=== PATIENT | male | born 1990 | race Caucasian/White ===

== ENCOUNTER 2016-05-23 15:41 | Emergency (ER) | payer SELFPAY ==
[2016-05-23] MEDS ORDERED: NS 1,000 ML IV ONE (16:41)
[2016-05-23 16:49] LABS: % IMMATURE GRANULYOCYTES 0.3 % (0.0-1.1); ABSOLUTE IMMATURE GRANULOCYTES 0.03 10^3/uL (0.00-0.10); ADD DIFF? NO; ADD MORPH? NO; ADD SCAN? NO; ATYPICAL LYMPHOCYTE FLAG 20 (0-99); FRAGMENT RBC FLAG 0 (0-99); HEMATOCRIT 49.6 % (40.0-51.0); HEMOGLOBIN 18.2 g/dL (13.7-17.5); LEFT SHIFT FLG 0 (0-99); LIPEMIA HEMOLYSIS FLAG 90 (0-99); MEAN CELL HEMOGLOBIN 32.3 pg (27.9-34.1); MEAN CELL HEMOGLOBIN CONCENTR. 36.7 g/dL (32.4-36.7); MEAN CELL VOLUME 88.1 fL (81.5-99.8); PLATELET CLUMPS FLAG 0 (0-99); PLATELET COUNT 255 10^3/uL (150-400); RED BLOOD CELL COUNT 5.63 10^6/uL (4.40-6.38); RED CELL DISTRIBUTION WIDTH 12.6 % (11.5-15.2)
[2016-05-23] MEDS ORDERED: IOPAMIDOL (ISOVUE-300) 100 ML BTL IV ONE (16:54)
[2016-05-23 16:58] LABS: ALANINE AMINOTRANSFERASE 31 IU/L (21-72); ALKALINE PHOSPHATASE 92 IU/L (38-126); ANION GAP 16 mEq/L (8-16); ASPARTATE AMINOTRANSFERASE 24 IU/L (17-59); BILIRUBIN,TOTAL 0.9 mg/dL (0.1-1.4); BILIRUBIN-CONJUGATED 0.3 mg/dL (0.0-0.5); BILIRUBIN-UNCONJUGATED 0.6 mg/dL (0.0-1.1); CARBON DIOXIDE 27 mEq/l (22-31); CHLORIDE 102 mEq/L (97-110); CREATININE 0.8 mg/dL (0.7-1.3); GLOMERULAR FILTRATION RATE > 60; GLUCOSE 95 mg/dL (70-100); POTASSIUM 3.7 mEq/L (3.5-5.2); SODIUM 145 mEq/L (134-144); TOTAL PROTEIN 8.9 g/dL (6.3-8.2)
--- NOTE | 2016-05-23 17:14 | EDPHY ---
[id number]: No limitations - Personal History Current Tetanus/Diphtheria Vaccine: Yes Current Tetanus Diphtheria and Acellular Pertussis (TDAP): Yes - Medical/Surgical History Hx Asthma: No Hx Chronic Respiratory Disease: No Hx Diabetes: No Hx Cardiac Disease: No Hx Renal Disease: No Hx Cirrhosis: No Hx Alcoholism: No Hx HIV/AIDS: No Hx Splenectomy or Spleen Trauma: No Other PMH: DENIES - Social History Smoking Status: Current some day smoker HPI/ROS: CHIEF COMPLAINT: Abdominal pain HISTORY OF PRESENT ILLNESS: 3 days of lower quadrant abdominal pain. It was gradual onset. Constant duration. Moderate to severe at times. Worse with Valsalva palpation. Nausea but no vomiting. No fever chills. No bloody stool or emesis. No constipation. No trauma. Some improvement with lying flat and resting. Thought he might have felt a hernia at times. The pain does radiate into the lower pelvis. But he has no testicular pain at this time. No other associated complaints or modifying factors. PREVIOUS ABDOMINAL SURGERIES/DIAGNOSES: None REVIEW OF SYSTEMS: Ten systems reviewed and are negative unless otherwise noted in the HPI EXAMINATION: General Appearance: Alert, no distress Head: normocephalic, atraumatic Eyes: Pupils equal and round, no conjunctival pallor or injection ENT, Mouth: Mucous membranes moist Neck: Normal inspection, supple, non-tender Respiratory: Lungs are clear to auscultation Cardiovascular: Regular rate and rhythm Gastrointestinal: Abdomen is soft. Tender palpation bilateral lower quadrants. No point tenderness. No tympany or rigidity. No CVA tenderness. Nonacute abdomen. Neurological: A&O, nonfocal, Strength is symmetric in all limbs. Skin: Warm and dry, no rash . No petechiae or purpura Extremities: Nontender, no pedal edema Psychiatric: Mood and affect normal DIFFERENTIAL DIAGNOSES: Including but not limited to cystitis, appendicitis, colitis, diverticulitis, hernia MDM: lower abdominal pain without any point tenderness. Abdominal exam reveals tenderness but nonacute abdomen. Vital signs are within normal limits. Laboratory studies are equivocal. CT scan of the abdomen pelvis has been ordered and is pending at this time. At this time I have discussed the case with Dr. Venegas, and he will assume care of the patient. please see his note for final disposition. ED Precautions: Worsening pain. Fever. Bloody stools. Bloody emesis. Constipation or diarrhea. SUPERVISION: Patient was evaluated in conjunction with the supervising physician. Please see their note for details. (Nelson Her) Constitutional: Initial Vital Signs Temperature (C) 98.2 F 05/23/16 15:49 Heart Rate 98 05/23/16 15:49 Respiratory Rate 16 05/23/16 15:49 Blood Pressure 141/77 H 05/23/16 15:49 O2 Sat (%) 91 L 05/23/16 15:49 O2 Delivery Mode Room Air Allergies/Adverse Reactions: No Known Allergies Allergy (Unverified 05/23/16 15:47) Home Medications: Medication Instructions Recorded NK [No Known Home Meds] 05/23/16 Medical Decision Making ED Course/Re-evaluation: The patient was evaluated and managed by the physician's graduate teaching assistant. My cosignature indicates that I reviewed the chart and I agree with the findings and plan of care as documented. I am the secondary supervising physician. CT abdomen and pelvis: Please refer the dictated report by Dr. Waqar Gates. No acute disease noted. 1900: I discussed the result with the patient. On repeat examination the patient was doing well. His Abdomen was soft, nontender and nondistended. No significant hernia. I discussed possible etiologies with the patient. I answered all his questions. He was given follow-up information for both general surgery and primary care physician. (Siomara Venegas) Differential Diagnosis: My differential includes but is not limited to incarcerated hernia, strangulated hernia, small bowel obstruction, perforation, abscess, volvulus, intussusception urinary tract infection, pyelonephritis, kidney stone (Siomara Venegas) - Data Points Laboratory Results: Laboratory Results 05/23/16 16:35 05/23/16 16:35 Medications Given: Discontinued Medications Sodium Chloride (Ns) 1,000 mls @ 0 mls/hr IV ONCE ONE PRN Reason: Wide Open Stop: 05/23/16 16:42 Last Admin: 05/23/16 16:41 Dose: 1,000 mls Departure - Departure Disposition: Home, Routine, Self-Care Clinical Impression: Abdominal pain Qualifiers: Abdominal location: lower abdomen, unspecified Qualifier Code: (R10.30) Lower abdominal pain, unspecified Condition: Good Instructions: Acute Abdominal Pain (ED) Additional Instructions: Return with increasing pain, vomiting, fever or any other concerns. Referrals: Rajwinder Renee MD [Medical Doctor] - 5-7 days, call for appt. Murali Membreno MD [Medical Doctor] - 5-7 days, if not improved
--- NOTE | 2016-05-23 18:56 | CT ---
CT Scan of the Abdomen and Pelvis (With Contrast) Clinical Indications: Abdominal pain Technique: 99 mL of Isovue 300 were given intravenously by machine power injection. Multidetector he lical CT imaging was performed from the diaphragm to the symphysis pubis. Dose reduction techniques w ere utilized. Findings: CT abdomen: Lung bases are clear. Liver, spleen, pancreas, kidneys appear unremarkable. Visualized vanessa wel loops appear normal. No peritoneal free fluid or air identified. CT Pelvis: No masses or free fluid. Impression: Negative CT examination of the abdomen and pelvis with contrast. Results called to Dr. Venegas at 6:50 PM.
[2016-05-23 18:59] VITALS: BP 145/89; PULSE 73; RESP 18; O2SAT 96
[2016-05-23 19:20] VITALS: TEMP 98.6
== END 2016-05-23 19:20 | disposition home or self-care (01) ==
DX: R10.30 Lower abdominal pain, unspecified (principal); F17.200 Nicotine dependence, unspecified, uncomplicated
CPT/HCPCS: Q9967